=== PATIENT | male | born 1965 | race American Indian/Alaskan Native ===

== ENCOUNTER 2019-04-16 17:01 | Emergency (ER) | payer MEDICARE, MEDICAID ==
[~2019-04-16] VITALS: Ht 175.3 cm; Wt 89.5 kg
[~2019-04-16 17:01] MED LIST: GLYB2.5T4 PO; METF-950 PO; MORP50CA PO; NAPR-996 PO; NORT50CA PO; SERT25TA5 PO; SITA100T15 PO; [UNRECOGNIZED DRUG - CODE] PO
[2019-04-16 17:05] VITALS: BP 142/100
[2019-04-16] MEDS ORDERED: clindamycin 150mg capsule PO ONE (18:20)
[2019-04-16] MEDS ORDERED: ketorolac trometh inj. 60 MG/2 ML VIAL IM ONE (18:20)
[2019-04-16] MEDS ORDERED: CLIN150C2 PO (18:29)
[2019-04-16] MEDS ORDERED: bacitracin 15gm ointment TP ONE (18:30)
== END 2019-04-16 19:16 | disposition home or self-care (01) ==
LOC: ER 17:02
DX: L02.212 Cutaneous abscess of back [any part, except buttock and flank] (principal); L03.312 Cellulitis of back [any part except buttock and flank]; E11.9 Type 2 diabetes mellitus without complications; J44.9 Chronic obstructive pulmonary disease, unspecified; Z79.84 Long term (current) use of oral hypoglycemic drugs; Z79.899 Other long term (current) drug therapy
CPT/HCPCS: 10060; 96372; 99283; J1885

== ENCOUNTER 2019-04-19 12:02 | Emergency (ER) | payer MEDICARE, MEDICAID ==
[~2019-04-19] VITALS: Ht 175.3 cm; Wt 80.0 kg
[~2019-04-19 12:02] MED LIST changes: +CLIN150C2 PO; +LIDOcaine 1% W/epiNEPHrine 1:100,000 20ml vial ONE
[2019-04-19 12:11] VITALS: BP 158/93
[2019-04-19] MEDS ORDERED: HYDROcodone/acetaminophen 5mg/325mg tablet PO ONE (12:15)
[2019-04-19] MEDS ORDERED: LIDOcaine 1% w/EPI 1:200,000 injection 10mL vial IM ONE (12:15)
[2019-04-19] MEDS ORDERED: HYDR-3965 PO (13:18)
== END 2019-04-19 13:37 | disposition home or self-care (01) ==
LOC: ER 12:03
DX: L02.212 Cutaneous abscess of back [any part, except buttock and flank] (principal); E11.9 Type 2 diabetes mellitus without complications; J44.9 Chronic obstructive pulmonary disease, unspecified; Z79.2 Long term (current) use of antibiotics; Z79.899 Other long term (current) drug therapy
CPT/HCPCS: 10060; 99283

== ENCOUNTER 2019-04-21 09:49 | Emergency (ER) | payer MEDICARE, MEDICAID ==
[~2019-04-21] VITALS: Ht 175.3 cm; Wt 82.7 kg
[~2019-04-21 09:49] MED LIST changes: +HYDR-3965 PO; -LIDOcaine 1% W/epiNEPHrine 1:100,000 20ml vial ONE
[2019-04-21 09:55] VITALS: BP 160/88
--- NOTE | 2019-04-21 10:23 | NUR ---
SET UP FOR PACKING REMOVAL PER PROVIDER REQUEST.
[2019-04-21] MEDS ORDERED: OXYC-145 PO (10:49)
== END 2019-04-21 11:02 | disposition home or self-care (01) ==
LOC: ER 09:50
DX: Z48.01 Encounter for change or removal of surgical wound dressing (principal); Z79.2 Long term (current) use of antibiotics; Z79.84 Long term (current) use of oral hypoglycemic drugs; Z79.899 Other long term (current) drug therapy; Z86.14 Personal history of Methicillin resistant Staphylococcus aureus infection
CPT/HCPCS: 99283

== ENCOUNTER 2019-07-21 04:13 | Outpatient (CLI) | payer MEDICARE, MEDICAID ==
[~2019-07-21 04:13] MED LIST changes: -CLIN150C2 PO; -HYDR-3965 PO; +OXYC-145 PO
== END 2019-07-21 23:59 | disposition home or self-care (01) ==
LOC: DIABETIC 04:13
PROVIDERS: ATTEND Registered Nurse General Practice
DX: E11.9 Type 2 diabetes mellitus without complications (principal)
CPT/HCPCS: G0109

== ENCOUNTER 2019-08-11 04:37 | Outpatient (CLI) | payer MEDICARE, MEDICAID | END 2019-08-11 23:59 | disposition home or self-care (01) | LOC: DIABETIC 04:37 | PROVIDERS: ATTEND Nurse Practitioner | DX: E11.9 Type 2 diabetes mellitus without complications (principal) | CPT/HCPCS: G0109 ==

== ENCOUNTER 2019-09-02 01:53 | Outpatient (CLI) | payer MEDICARE, MEDICAID | END 2019-09-02 23:59 | disposition home or self-care (01) | LOC: DIABETIC 01:53 | PROVIDERS: ATTEND Nurse Practitioner | DX: E11.9 Type 2 diabetes mellitus without complications (principal) | CPT/HCPCS: G0108 ==

== ENCOUNTER 2019-12-17 10:09 | Outpatient (CLI) | payer MEDICARE, MEDICAID | END 2019-12-17 23:59 | disposition home or self-care (01) | LOC: CAR 10:09 | PROVIDERS: ATTEND Anesthesiology | DX: Z01.818 Encounter for other preprocedural examination (principal); R00.0 Tachycardia, unspecified; G89.21 Chronic pain due to trauma | CPT/HCPCS: 93005 ==

== ENCOUNTER 2020-11-06 10:06 | Emergency (ER) | payer MEDICARE, MEDICAID ==
[~2020-11-06] VITALS: Ht 172.7 cm; Wt 92.5 kg
[~2020-11-06 10:06] MED LIST changes: +SERT-432 PO; -SERT25TA5 PO
[2020-11-06 10:21] VITALS: BP 133/92
[2020-11-06] MEDS ORDERED: AMOX-580 PO (11:56)
[2020-11-06] MEDS ORDERED: HYDR-3965 PO (11:56)
[2020-11-06] MEDS ORDERED: CIPR7.5D RIGHT EAR (11:56)
== END 2020-11-06 12:11 | disposition home or self-care (01) ==
LOC: ER 10:07
DX: H66.91 Otitis media, unspecified, right ear (principal); Z86.14 Personal history of Methicillin resistant Staphylococcus aureus infection; Z79.2 Long term (current) use of antibiotics; Z79.899 Other long term (current) drug therapy; H91.93 Unspecified hearing loss, bilateral
CPT/HCPCS: 99283

== ENCOUNTER 2020-11-25 10:48 | Emergency (ER) | payer MEDICARE, MEDICAID ==
[~2020-11-25] VITALS: Ht 172.7 cm; Wt 91.6 kg
[~2020-11-25 10:48] MED LIST changes: +CIPR7.5D RIGHT EAR
[2020-11-25 11:20] VITALS: BP 151/94
[2020-11-25] MEDS ORDERED: CEFD300C3 PO (11:57)
== END 2020-11-25 12:18 | disposition home or self-care (01) ==
LOC: ER 10:50
DX: H66.004 Acute suppurative otitis media without spontaneous rupture of ear drum, recurrent, right ear (principal); Z79.899 Other long term (current) drug therapy
CPT/HCPCS: 99283

== ENCOUNTER 2020-12-07 09:21 | Emergency (ER) | payer MEDICARE, MEDICAID ==
[~2020-12-07] VITALS: Ht 172.7 cm; Wt 92.3 kg
[~2020-12-07 09:21] MED LIST changes: +CEFD300C3 PO
[2020-12-07 10:41] LABS: BASOPHILS % (AUTO) 0.4 % (0-1); EOSINOPHILS # (AUTO) 0.1 X10'3 (0-0.9); EOSINOPHILS % (AUTO) 1.1 % (0-6); HEMOGLOBIN 16.3 g/dl (14.0-17.9); LYMPHOCYTES # (AUTO) 2.6 X10'3 (1.1-4.8); LYMPHOCYTES % (AUTO) 23.2 % (21-51); MEAN CORPUSCULAR HEMOGLOBIN 30.5 PG (27.0-31.0); MEAN CORPUSCULAR HGB CONC 33.3 g/dL (33.0-36.5); MEAN CORPUSCULAR VOLUME 91.5 FL (78-98); MEAN PLATELET VOLUME 6.9 FL (7.4-10.4); MONOCYTES # (AUTO) 0.7 X10'3 (0-0.9); NEUTROPHILS # (AUTO) 7.8 X10'3 (1.8-7.7); NEUTROPHILS % (AUTO) 69.3 % (42-75); PLATELET COUNT 319 X10'3 (140-440); RED BLOOD COUNT 5.35 X10'6 (4.70-6.10); RED CELL DISTRIBUTION WIDTH 13.6 % (11.5-14.5); WHITE BLOOD COUNT 11.2 X10'3 (4.5-11.0)
[2020-12-07 10:49] LABS: ALANINE AMINOTRANSFERASE 20 U/L (12-78); ALBUMIN 4.2 G/DL (3.4-5.0); ALBUMIN/GLOBULIN RATIO 1.3 (1.1-1.5); ALKALINE PHOSPHATASE 68 IU/L (46-116); ANION GAP 11 (8-16); ASPARTATE AMINO TRANSFERASE 14 U/L (10-37); BILIRUBIN,TOTAL 0.4 MG/DL (0.1-1.0); BLOOD UREA NITROGEN 21 MG/DL (7-18); BUN/CREATININE RATIO 20.2 (5.4-32.0); CALCIUM 8.8 MG/DL (8.5-10.1); CHLORIDE 102 MMOL/L (99-107); CREATININE 1.04 MG/DL (0.60-1.10); GLUCOSE 218 MG/DL (70-104); MAGNESIUM 1.8 MG/DL (1.5-2.4); POTASSIUM 3.8 MMOL/L (3.5-5.1); SODIUM 139 MMOL/L (135-145); TOTAL CARBON DIOXIDE 26.3 MMOL/L (24-32); TOTAL PROTEIN 7.5 G/DL (6.4-8.2); eGFR 74 ML/MIN
[2020-12-07] MEDS ORDERED: iohexol 300mg/ml 100ml inj. ONE (11:12)
--- NOTE | 2020-12-07 11:14 | NUR ---
PATIENT PICKED UP FROM ROOM TO CT.
[2020-12-07] MEDS ORDERED: normal saline 1000ML IV soln IVB ONE (11:30)
[2020-12-07] MEDS ORDERED: MESSAGE TO NURSING PO SCH (11:30)
--- NOTE | 2020-12-07 11:38 | NUR ---
EDUCATED PATIENT ON THE IMPORTANCE OF NOT TAKING HIS METFORMIN FOR 48 HOURS SINCE HE RECEIVED CONTRAST.
[2020-12-07] MEDS ORDERED: ondansetron/PF 4mg/2ml inj IV ONE (11:45)
[2020-12-07] MEDS ORDERED: morphine 4 MG/ML inj SYRINge IV ONE (11:45)
[2020-12-07] MEDS ORDERED: CLINDAmcin 900mg/NS 50ml IVPB 50 ML IV ONE (12:15)
[2020-12-07] MEDS ORDERED: ketorolac trometh. 30mg/ml inj. IV ONE (12:15)
[2020-12-07] MEDS ORDERED: CLIN-97 PO (12:23)
[2020-12-07 13:14] VITALS: BP 142/92
== END 2020-12-07 13:15 | disposition home or self-care (01) ==
LOC: ER 09:23
DX: K08.89 Other specified disorders of teeth and supporting structures (principal); H70.91 Unspecified mastoiditis, right ear; H66.91 Otitis media, unspecified, right ear; J44.9 Chronic obstructive pulmonary disease, unspecified; Z79.899 Other long term (current) drug therapy
CPT/HCPCS: 36415; 70491; 80053; 83605; 83735; 84145; 85025; 87040; 96365; 96375; 99285; J1885; J2270; J2405; J7030; Q9967; 96361; J3490

== ENCOUNTER 2022-07-06 19:04 | Emergency (ER) | payer MEDICARE, MEDICAID ==
[~2022-07-06] VITALS: Ht 175.3 cm; Wt 86.4 kg
[~2022-07-06 19:04] MED LIST changes: +CLIN-97 PO; +METF-1203 PO; -METF-950 PO
[2022-07-06 19:11] VITALS: BP 131/87
--- NOTE | 2022-07-06 19:48 | NUR ---
NO INJURY. HE WAS WET. HE WAS CHANGED INTO DRY CLOTHES.
== END 2022-07-06 19:49 | disposition home or self-care (01) ==
LOC: ER 19:05
DX: H91.8X3 Other specified hearing loss, bilateral (principal); Z86.14 Personal history of Methicillin resistant Staphylococcus aureus infection; Z79.899 Other long term (current) drug therapy; V98.8XXA Other specified transport accidents, initial encounter; Y93.89 Activity, other specified; Y92.89 Other specified places as the place of occurrence of the external cause; Y99.8 Other external cause status
CPT/HCPCS: 99283

== ENCOUNTER 2025-05-25 08:33 | Outpatient (CLI) | payer MEDICARE, MEDICAID ==
[~2025-05-25 08:33] MED LIST changes: +CLIN-224 PO; -CLIN-97 PO; +NAPR-1168 PO; -NAPR-996 PO
--- NOTE | 2025-05-25 10:12 | RADIOLOGY REPORT ---
Indication: NICOTINE DEPENDENCE, UNSPECIFIED, UNCOMPLICATED Technique: CT axial images of the chest are obtained without contrast. Coronal and sagittal reformats were obtained. Radiation Dose Information: CTDI volume is 3 mGy. Dose-length product is 111 mGy*cm Comparison: None FINDINGS: The trachea is patent. No pneumothorax. No pulmonary airspace consolidation. No pleural effusion. Pulmonary emphysematous changes. 3 mm left lower lobe calcified nodule consistent with remote granulomatous disease. Heart normal in size. Aortic atherosclerotic disease. No supraclavicular, axillary lymphadenopathy. Mild to moderate thoracic degenerative disc disease. IMPRESSION: Limited evaluation without contrast. 3 mm left lower lobe calcified nodule consistent with remote granulomatous disease. Lung rads 1 recommend follow-up low-dose CT in 12 months. Atherosclerotic disease. Pulmonary emphysematous changes.
== END 2025-05-25 23:59 | disposition home or self-care (01) ==
LOC: RAD 08:33
PROVIDERS: ATTEND Nurse Practitioner
DX: Z12.2 Encounter for screening for malignant neoplasm of respiratory organs (principal); R91.8 Other nonspecific abnormal finding of lung field; F17.210 Nicotine dependence, cigarettes, uncomplicated; J43.8 Other emphysema; R91.1 Solitary pulmonary nodule; I70.0 Atherosclerosis of aorta; M51.34 Other intervertebral disc degeneration, thoracic region
CPT/HCPCS: 71271